=== PATIENT | male | born 1995 | race Caucasian/White ===

== ENCOUNTER 2018-05-29 13:49 | Emergency (ER) | payer BC ==
[2018-05-29] MEDS ORDERED: Sodium Chloride 0.9% 10 ML Syringe FLUSH PRN ×2 (14:14→14:50)
[2018-05-29] MEDS ORDERED: LORazepam 2 MG/ML SDV IVPUSH ONE (14:18)
[2018-05-29] MEDS ORDERED: GI Cocktail Oral Solution 30 ML PO ONE (14:48)
[2018-05-29] MEDS ORDERED: Acetaminophen 325 MG Tab PO ONE (14:48)
[2018-05-29] MEDS ORDERED: Sodium Chloride 0.9% 1,000 ML IV ONE ×2 (14:51→15:34)
--- NOTE | 2018-05-29 14:53 | EDM.PDOC ---
ED HPI GENERAL MEDICAL PROBLEM - General Chief Complaint: Chest Pain Stated Complaint: Chest Pain Time Seen by Provider: 05/29/18 14:43 Source of Information: Reports: Patient History Limitations: Reports: No Limitations - History of Present Illness INITIAL COMMENTS - FREE TEXT/NARRATIVE: Patient comes to ER with complaint of generalized headache, epigastric pain, nausea, and loose stools. Ill since yesterday. Has not taken any medication for his symptoms. Works at [employer]. Smoker. Headache is better when he lays down. No acute other HEENT changes. Denies obvious cold symptoms. No ear pain/vision change or drainage. Respiratory is negative for new cough/wheeze/SOB Chest pain is epigastric and substernal. No radiation. Nothing specifically makes it better or worse. Patient admits to participating in a hot pepper eating "challenge" with friends last Monday. He at leftover food with the hot peppers last night. Has had nausea but no vomiting yesterday and today. Approximately 6-8 loose bowel movements over the last two days. Non-bloody. No other abdominal pain noted. Denies back pain. Denies UTI changes/urinary complaints. No other neuro complaints. No weakness/limb changes. Denies fevers but filled a bit chilled earlier today. Denies any significant past medical history. During ROS patient mentioned that he sometimes feels a bit anxious, and sometimes feels a bit depressed. Has not seen anyone for this. Denies any feelings of self harm or harm towards others. Parietal Headache Pain Score (Numeric/FACES): 10 - Related Data Allergies Allergy/AdvReac Type Severity Reaction Status Date / Time No Known Allergies Allergy Verified 06/01/18 14:51 Home Meds: Home Meds Acetaminophen/Caffeine [Excedrin Tension Headache Cplt] 1 tab PO DAILY PRN 06/01 [History] Ascorbate Calcium [Vitamin C] 500 mg PO DAILY 06/01/18 [History] Magnesium Oxide 400 mg PO DAILY 06/01/18 [History] Past Medical History - Past Health History Medical/Surgical History: Denies Medical/Surgical History Social & Family History - Family History Cardiac: Reports: Heart Failure Psychiatric: Reports: ADD, ADHD, Depression, Mood Swings, Schizophrenia Endocrine/Metabolic: Reports: Diabetes, type II Oncologic: Reports: Breast, Lung - Tobacco Use Smoking Status *Q: Current Every Day Smoker Years of Tobacco use: 7 Packs/Tins Daily: 0.5 - Caffeine Use Caffeine Use: Reports: Energy Drinks, Soda - Alcohol Use Days Per Week of Alcohol Use: 2 Number of Drinks Per Day: 12 Total Drinks Per Week: 24 - Recreational Drug Use Recreational Drug Use: Yes Recreational Drug Type: Reports: Marijuana/Hashish Recreational Drug Use Frequency: Daily ED ROS GENERAL - Review of Systems Review Of Systems: ROS reveals no pertinent complaints other than HPI. ED EXAM, GENERAL - Physical Exam Exam: See Below Exam Limited By: No Limitations General Appearance: Alert, WD/WN, Anxious Eye Exam: Bilateral Eye: EOMI, PERRL Ears: Normal External Exam, Normal Canal, Hearing Grossly Normal, Normal TMs Nose: Normal Inspection, Normal Mucosa, No Blood. No: Nasal Deformity, Nasal Swelling, Nasal Drainage Throat/Mouth: Normal Inspection, Normal Lips, Normal Oropharynx, Normal Voice, No Airway Compromise Head: Atraumatic, Normocephalic Neck: Normal Inspection, Supple, Non-Tender, Full Range of Motion. No: Lymphadenopathy (L), Lymphadenopathy (R) Respiratory/Chest: No Respiratory Distress, Lungs Clear, Normal Breath Sounds, No Accessory Muscle Use, Chest Non-Tender Cardiovascular: Normal Peripheral Pulses, Regular Rate, Rhythm, No Murmur Peripheral Pulses: 2+: Radial (L), Radial (R) GI/Abdominal: Normal Bowel Sounds, Soft, No Distention, No Abnormal Bruit, Tender (mild tenderness in epigastrum only). No: Guarding, Rigid, Rebound (Male) Exam: Deferred Rectal (Males) Exam: Deferred Back Exam: Normal Inspection Extremities: Normal Inspection, Normal Range of Motion, Non-Tender, No Pedal Edema, Normal Capillary Refill Neurological: Alert, Oriented, CN II-XII Intact, Normal Cognition, Normal Gait, No Motor/Sensory Deficits Psychiatric: Anxious Skin Exam: Warm, Dry, Intact, Normal Color, No Rash EKG INTERPRETATION EKG Date: 05/29/18 Time: 13:54 Rhythm: Other (Tachycardia) Rate (Beats/Min): 106 Gaffney: Normal P-Wave: Present QRS: Normal ST-T: Other (QRS morphology suggestive of possible LVH based on voltage) QT: Normal Comparison: NA - No Prior EKG Course - Vital Signs Last Recorded V/S: Last Vital Signs Temp 37.1 C 05/29/18 14:06 Pulse 78 05/29/18 17:51 Resp 13 05/29/18 17:51 BP 132/85 05/29/18 17:51 Pulse Ox 100 05/29/18 17:51 Orthostatic Blood Pressure [ 150/90 Supine] - Orders/Labs/Meds Labs: Laboratory Tests 05/29/18 05/29/18 05/29/18 Range/Units 14:00 14:00 14:00 WBC 9.9 (4.0-10.2) K/uL RBC 4.81 (4.33-5.41) M/uL Hgb 16.4 (13.1-16.8) g/dL Hct 45.0 (39.0-49.0) % MCV 93.6 (84.0-98.0) fL MCH 34.1 H (28.2-33.3) pg MCHC 36.4 H (31.7-36.0) g/dL RDW 13.2 (11.2-14.1) % Plt Count 219 (150-350) K/uL Neut % (Auto) 65.7 (45.0-80.0) % Lymph % (Auto) 20.9 (10.0-50.0) % Harlan % (Auto) 10.3 (2.0-14.0) % Eos % (Auto) 2.9 (0.0-5.0) % Baso % (Auto) 0.2 (0.0-2.0) % Neut # (Auto) 6.48 (1.40-7.00) K/uL Lymph # (Auto) 2.06 (0.50-3.50) K/uL Harlan # (Auto) 1.02 H (0.00-1.00) K/uL Eos # (Auto) 0.29 (0.00-0.50) K/uL Baso # (Auto) 0.02 (0.00-0.20) K/uL D-Dimer, Quantitative < 100 (0-400) ng/mL Sodium 137 (136-145) mmol/L Potassium 3.8 (3.5-5.1) mmol/L Chloride 100 (98-107) mmol/L Carbon Dioxide 24.7 (21.0-32.0) mmol/L BUN 11 (7-18) mg/dL Creatinine 0.85 (0.51-1.17) mg/dL Est Cr Clr Drug Dosing 145.19 mL/min Estimated GFR (MDRD) > 60 mL/min Glucose 102 (74-106) mg/dL Lactic Acid (0.4-2.0) mmol/L Calcium 9.2 (8.5-10.1) mg/dL Magnesium 1.5 L (1.8-2.4) mg/dL Total Bilirubin 0.5 (0.2-1.0) mg/dL AST 26 (15-37) U/L ALT 31 (12-78) U/L Alkaline Phosphatase 88 (46-116) IU/L Troponin I 0.000 (0.000-0.056) ng/mL Total Protein 8.4 H (6.4-8.2) g/dL Albumin 4.3 (3.4-5.0) g/dL Specimen Type Urine Color Urine Appearance Urine pH (5.0-9.0) Ur Specific [place] (1.005-1.030) Urine Protein (NEGATIVE) mg/dL Urine Glucose (UA) (NEGATIVE) mg/dL Urine Ketones (NEGATIVE) mg/dL Urine Occult Blood (NEGATIVE) Urine Nitrite (NEGATIVE) Urine Bilirubin (NEGATIVE) Urine Urobilinogen (0.2-1.0) E.U./dL Ur Leukocyte Esterase (NEGATIVE) Urine RBC /HPF Urine WBC /HPF Ur Epithelial Cells /LPF Urine Bacteria (NONE TO FEW) /HPF 05/29/18 05/29/18 Range/Units 14:00 17:30 WBC (4.0-10.2) K/uL RBC (4.33-5.41) M/uL Hgb (13.1-16.8) g/dL Hct (39.0-49.0) % MCV (84.0-98.0) fL MCH (28.2-33.3) pg MCHC (31.7-36.0) g/dL RDW (11.2-14.1) % Plt Count (150-350) K/uL Neut % (Auto) (45.0-80.0) % Lymph % (Auto) (10.0-50.0) % Harlan % (Auto) (2.0-14.0) % Eos % (Auto) (0.0-5.0) % Baso % (Auto) (0.0-2.0) % Neut # (Auto) (1.40-7.00) K/uL Lymph # (Auto) (0.50-3.50) K/uL Harlan # (Auto) (0.00-1.00) K/uL Eos # (Auto) (0.00-0.50) K/uL Baso # (Auto) (0.00-0.20) K/uL D-Dimer, Quantitative (0-400) ng/mL Sodium (136-145) mmol/L Potassium (3.5-5.1) mmol/L Chloride (98-107) mmol/L Carbon Dioxide (21.0-32.0) mmol/L BUN (7-18) mg/dL Creatinine (0.51-1.17) mg/dL Est Cr Clr Drug Dosing mL/min Estimated GFR (MDRD) mL/min Glucose (74-106) mg/dL Lactic Acid 2.3 H (0.4-2.0) mmol/L Calcium (8.5-10.1) mg/dL Magnesium (1.8-2.4) mg/dL Total Bilirubin (0.2-1.0) mg/dL AST (15-37) U/L ALT (12-78) U/L Alkaline Phosphatase (46-116) IU/L Troponin I (0.000-0.056) ng/mL Total Protein (6.4-8.2) g/dL Albumin (3.4-5.0) g/dL Specimen Type Urinblad Urine Color Yellow Urine Appearance Clear Urine pH 7.0 (5.0-9.0) Ur Specific [place] 1.015 (1.005-1.030) Urine Protein Negative (NEGATIVE) mg/dL Urine Glucose (UA) Negative (NEGATIVE) mg/dL Urine Ketones Negative (NEGATIVE) mg/dL Urine Occult Blood Negative (NEGATIVE) Urine Nitrite Negative (NEGATIVE) Urine Bilirubin Negative (NEGATIVE) Urine Urobilinogen 0.2 (0.2-1.0) E.U./dL Ur Leukocyte Esterase Negative (NEGATIVE) Urine RBC Not seen /HPF Urine WBC Not seen /HPF Ur Epithelial Cells Not seen /LPF Urine Bacteria Not seen (NONE TO FEW) /HPF Meds: Medications Discontinued Medications Generic Name Dose Route Start Last Admin Trade Name Freq PRN Reason Stop Dose Admin Acetaminophen 650 mg 05/29/18 14:48 05/29/18 14:59 Tylenol PO 05/29/18 14:49 650 mg NOW ONE Administration Al Hydroxide/Mg Hydroxide 30 ml 05/29/18 14:48 05/29/18 15:01 Gi Cocktail PO 05/29/18 14:49 30 ml ONETIME ONE Administration Famotidine 20 mg 05/29/18 15:33 05/29/18 15:38 Pepcid IVPUSH 05/29/18 15:34 20 mg ONETIME ONE Administration Sodium Chloride 1,000 mls @ 999 mls/hr 05/29/18 14:51 05/29/18 15:01 Normal Saline IV 05/29/18 15:51 999 mls/hr .BOLUS ONE Administration Sodium Chloride 1,000 mls @ 999 mls/hr 05/29/18 15:34 05/29/18 17:18 Normal Saline IV 05/29/18 16:34 999 mls/hr .BOLUS ONE Administration Loperamide HCl 4 mg 05/29/18 15:33 05/29/18 16:04 Imodium Ad PO 05/29/18 15:34 4 mg ONETIME ONE Administration Lorazepam 1 mg 05/29/18 14:18 05/29/18 14:22 Ativan IVPUSH 05/29/18 14:19 1 mg ONETIME ONE Administration Magnesium Oxide 400 mg 05/29/18 15:35 05/29/18 16:04 Magnesium Oxide PO 05/29/18 15:36 400 mg ONETIME ONE Administration Magnesium Sulfate/Dextrose 1 gm 05/29/18 15:32 05/29/18 15:39 Magnesium 1 Gm In D5w 100 Ml IV 05/29/18 15:33 1 gm ONETIME ONE Administration Ondansetron HCl 4 mg 05/29/18 15:34 05/29/18 15:42 Zofran IVPUSH 05/29/18 15:35 4 mg ONETIME ONE Administration Pantoprazole Sodium 40 mg 05/29/18 15:32 05/29/18 15:38 Protonix Iv IVPUSH 05/29/18 15:33 40 mg ONETIME ONE Administration Sodium Chloride 10 ml 05/29/18 14:14 05/29/18 14:24 Saline Flush FLUSH 10 ml ASDIRECTED PRN Administration Keep Vein Open Sodium Chloride 10 ml 05/29/18 14:50 Saline Flush FLUSH ASDIRECTED PRN Keep Vein Open - Radiology Interpretation Free Text/Narrative:: Chest xray unremarkable for acute changes. - Re-Assessments/Exams Free Text/Narrative Re-Assessment/Exam: Cardiac labs/EKG/chest xray requested given complaint of chest pain. Patient anxious, received Ativan. Suspicion of gastroenteritis/viral illness given history and complaints. Influenza ordered. Patient received IV fluids. GI cocktail led to complete relief of epigastric/substernal pain. Pepcid and Protonix IV subsequently ordered. Mag quite low at 1.5 Patient asked if he had issues with muscle cramping. He responded that he notes that his leg muscles are somewhat shaky at times and he feels like they might cramp. No history of low Mg. IV Magnesium replacement ordered as well as PO. Further anticipated dilution of Magnesium with planned 2L of NS fluid bolus suggested IV Mag appropriate choice. Normal WBC Lactic acid mildly elevated at 2.4 Departure - Departure Time of Disposition: 17:00 Disposition: Home, Self-Care 01 Condition: Good Clinical Impression: Gastroenteritis, Hypomagnesemia - Discharge Information *PRESCRIPTION DRUG MONITORING PROGRAM REVIEWED*: Not Applicable *COPY OF PRESCRIPTION DRUG MONITORING REPORT IN PATIENT JEFF: Not Applicable Instructions: Ondansetron injection, Viral Gastroenteritis, Adult, [id number] , Hypomagnesemia, Pantoprazole injection, Magnesium Sulfate injection, Famotidine injection, Lorazepam injection Referrals: Martina Ramirez PA-C [Primary Care Provider] - Forms: ED Department Discharge Additional Instructions: Rhea diet. Stay away from chili peppers/hot food. If intermittent continued epigastric pain and heart burn is noted, recommend follow up with clinic for HPylorie testing. Follow up with local clinic for STD testing as discussed given your concerns. Work on a suction plate carrier cleaner diet! This may help in many ways, including improved mood. If you have any concerns that you may be developing a more depressed mood, please make a follow up appointment with the clinic for appropriate evaluation and planning. Stay hydrated. Water is best. Avoidance of energy drinks is encouraged. If you do not note significant improvement in symptoms over the next 24-36 hours , follow up for re-check. Follow up sooner for worsening problems. Start taking Vitamin D 4000 to 5000 units daily Start taking Magnesium Gluconate 400-500mg daily
[2018-05-29 14:55] LABS: CHLORIDE,CL 100 mmol/L (98-107); SODIUM,NA 137 mmol/L (136-145)
[2018-05-29] MEDS ORDERED: Pantoprazole 40 MG Vial IVPUSH ONE (15:32)
[2018-05-29] MEDS ORDERED: Loperamide 2 MG Tab PO ONE (15:33)
[2018-05-29] MEDS ORDERED: Famotidine 20 MG/2 ML SDV IVPUSH ONE (15:33)
[2018-05-29] MEDS ORDERED: Ondansetron 4 MG/2 ML SDV IVPUSH ONE (15:34)
[2018-05-29] MEDS ORDERED: Magnesium Oxide 400 MG Tab PO ONE (15:35)
== END 2018-05-29 18:25 | disposition home or self-care (01) ==
LOC: LL.ED 13:49
DX: K52.9 Noninfective gastroenteritis and colitis, unspecified (principal); E83.42 Hypomagnesemia; F17.210 Nicotine dependence, cigarettes, uncomplicated; Z79.899 Other long term (current) drug therapy
CPT/HCPCS: 36415; 71046; 80053; 81001; 83605; 83735; 84484; 85025; 85379; 87804; 93005; 96361; 96365; 96375; 99284; A9270-GY; C9113; J2060; J2405; J3475; J3490; J7030

== ENCOUNTER 2018-06-01 14:50 | Emergency (ER) | payer BC | END 2018-06-01 15:15 | disposition left against medical advice (07) | LOC: LL.ED 14:50 | DX: Z53.21 Procedure and treatment not carried out due to patient leaving prior to being seen by health care provider (principal) ==

== ENCOUNTER 2019-12-11 08:36 | Emergency (ER) | payer BC, OTHER ==
--- NOTE | 2019-12-11 09:15 | EDM.PDOC ---
ED HPI GENERAL MEDICAL PROBLEM - General Chief Complaint: Upper Extremity Injury/Pain Stated Complaint: right wrist pian Time Seen by Provider: 12/11/19 08:45 Source of Information: Reports: Patient History Limitations: Reports: No Limitations - History of Present Illness INITIAL COMMENTS - FREE TEXT/NARRATIVE: Pt was using a hammer yesterday and felt something pull in his wrist Used ice and Ibuprofen but with increased pain and limited ROM today Onset: Sudden Duration: Day(s):, Getting Worse Location: Reports: Upper Extremity, Right Severity: Moderate Improves with: Reports: Immobilization Worsens with: Reports: Movement Context: Reports: Trauma - Related Data Allergies Allergy/AdvReac Type Severity Reaction Status Date / Time No Known Allergies Allergy Verified 12/11/19 08:48 Home Meds: Home Meds Fluticasone Propionate [Flonase] 1 spray INH ASDIRECTED PRN 12/11/19 [History] Ibuprofen 800 mg PO Q6HR PRN 12/11/19 [History] Past Medical History - Past Health History Medical/Surgical History: Denies Medical/Surgical History - Past Surgical History HEENT Surgical History: Reports: Tonsillectomy Social & Family History - Family History Cardiac: Reports: Heart Failure Psychiatric: Reports: ADD, ADHD, Depression, Mood Swings, Schizophrenia Endocrine/Metabolic: Reports: Diabetes, type II Oncologic: Reports: Breast, Lung - Tobacco Use Smoking Status *Q: Current Every Day Smoker Years of Tobacco use: 5 Packs/Tins Daily: 0.5 - Caffeine Use Caffeine Use: Reports: Energy Drinks - Recreational Drug Use Recreational Drug Use: No Review of Systems - Review of Systems Review Of Systems: See Below Musculoskeletal: Reports: Joint Pain, Joint Swelling ED EXAM, GENERAL - Physical Exam Exam: See Below Exam Limited By: No Limitations General Appearance: Alert, WD/WN, Mild Distress Extremities: Other (Right wrist tender over extensor surface Mild swelling No ecchymosis) Course - Vital Signs Last Recorded V/S: Last Vital Signs Temp 98.8 F 12/11/19 08:42 Pulse 87 12/11/19 08:42 Resp 18 12/11/19 08:42 BP 149/87 H 12/11/19 08:42 Pulse Ox 100 12/11/19 08:42 - Orders/Labs/Meds Orders: Active Orders 24 hr Category Date Time Status Wrist Comp Min 3V Rt [CR] Stat Exams 12/11/19 08:37 Taken - Re-Assessments/Exams Free Text/Narrative Re-Assessment/Exam: 12/11/19 09:13 Xray: No fracture 12/11/19 09:14 Splint placed per nursing Departure - Departure Time of Disposition: 09:30 Disposition: Home, Self-Care 01 Clinical Impression: Wrist pain, right - Discharge Information *PRESCRIPTION DRUG MONITORING PROGRAM REVIEWED*: Not Applicable *COPY OF PRESCRIPTION DRUG MONITORING REPORT IN PATIENT JEFF: Not Applicable Instructions: Cast or Splint Care, Adult, [id number], How to Use Cold Therapy, Wrist Pain, Adult, [id number] Referrals: Martina Ramirez PA-C [Primary Care Provider] - Additional Instructions: Ice as needed Wear splint Follow up in clinic if not improved Sepsis Event Note (ED) - Evaluation Sepsis Screening Result: No Definite Risk - Focused Exam Vital Signs: Vital Signs Temp Pulse Resp BP Pulse Ox 12/11/19 08:42 98.8 F 87 18 149/87 H 100 - My Orders Last 24 Hours: My Active Orders 12/11/19 08:37 Wrist Comp Min 3V Rt [CR] Stat - Assessment/Plan Last 24 Hours: My Active Orders 12/11/19 08:37 Wrist Comp Min 3V Rt [CR] Stat
== END 2019-12-11 09:44 | disposition home or self-care (01) ==
LOC: LL.ED 08:36
DX: M25.531 Pain in right wrist (principal); F17.210 Nicotine dependence, cigarettes, uncomplicated; X50.9XXA Other and unspecified overexertion or strenuous movements or postures, initial encounter
CPT/HCPCS: 73110-RT; 99282; 99283

== ENCOUNTER 2021-02-01 16:03 | Emergency (ER) | payer OTHER, BC ==
[2021-02-01] MEDS: Lidocaine 2% with EPINEPHrine 1:100,000 20 ML MDV INJECT ONE (16:11)
[2021-02-01 16:32] VITALS: PULSE 108
[2021-02-01] MEDS ORDERED: Bacitracin Oint 1 GM U/D Packet ONE (16:48)
[2021-02-01] MEDS: Bacitracin Oint 1 GM U/D Packet TOP ONE (16:49)
[2021-02-01 16:54] VITALS: BP 132/76
--- NOTE | 2021-02-01 17:23 | EDM.PDOC ---
ED HPI GENERAL MEDICAL PROBLEM - General Chief Complaint: Laceration Stated Complaint: injury to left arm from ratchet strap Time Seen by Provider: 02/01/21 16:03 Source of Information: Reports: Patient History Limitations: Reports: No Limitations - History of Present Illness INITIAL COMMENTS - FREE TEXT/NARRATIVE: Patient comes emergency department today from work at [employer] with an injury to his left forearm. Just prior to arrival the patient was at work when he was using a ratchet strap on a tire to get it to seat in the tire rim. The ratchet strap shot off the rim and struck him in the left forearm sustaining a rather large laceration the left forearm. This happened just prior to arrival. Patient denies any paresthesias to his left hand. No change in the functio nality of his left hand. He is unsure when his last tetanus shot was. left forearm Pain Score (Numeric/FACES): 6 - Related Data Allergies Allergy/AdvReac Type Severity Reaction Status Date / Time No Known Allergies Allergy Verified 12/11/19 08:48 Home Meds: Home Meds Fluticasone Propionate [Flonase] 1 spray INH ASDIRECTED PRN 12/11/19 [History] Ibuprofen 800 mg PO Q6HR PRN 12/11/19 [History] cephALEXin [Cephalexin] 500 mg PO QID #16 tablet 02/01/21 [Rx] Past Medical History - Past Health History Medical/Surgical History: Denies Medical/Surgical History - Past Surgical History HEENT Surgical History: Reports: Tonsillectomy Social & Family History - Family History Cardiac: Reports: Heart Failure Psychiatric: Reports: ADD, ADHD, Depression, Mood Swings, Schizophrenia Endocrine/Metabolic: Reports: Diabetes, type II Oncologic: Reports: Breast, Lung - Tobacco Use Tobacco Use Status *Q: Heavy Tobacco User Years of Tobacco use: 10 Packs/Tins Daily: 1 Used Tobacco, but Quit: No Second Hand Smoke Exposure: Yes - Caffeine Use Caffeine Use: Reports: Energy Drinks - Recreational Drug Use Recreational Drug Use: No ED ROS GENERAL - Review of Systems Review Of Systems: Comprehensive ROS is negative, except as noted in HPI. ED EXAM, SKIN/RASH Exam: See Below Text/Narrative:: On the volar surface of the left distal forearm approximately 4 inches proximal from the wrist there is a large open laceration that is approximately 5 cm in length and 2-1/2 cm wide. This extends past the subcutaneous tissue and minimally interrupts the muscle fascia. Does not involve any tendon. Is able to flex and extend and rotate the wrist and fingers of his hand appropriately. There is a small amount of bleeding. There is no bleeding from the muscle fascia injury. There is some bruising to the muscle as well. There is no foreign material. There is a small arterial bleeder that is initially con trolled with direct pressure. This is a superficial small arterial bleeder. Rest of the left upper forearm is unremarkable. Exam Limited By: No Limitations General Appearance: Alert, WD/WN Respiratory/Chest: No Respiratory Distress Cardiovascular: Normal Peripheral Pulses, Regular Rate, Rhythm Peripheral Pulses: 2+: Radial (L), Radial (R) Extremities: Normal Capillary Refill. No: Normal Inspection (Please see text narrative above for the injury to the left volar surface of the forearm.) Neurological: Alert, Oriented, No Motor/Sensory Deficits Psychiatric: Normal Affect, Normal Mood Skin: Warm, Dry, Intact, Normal Color, No Rash ED SKIN PROCEDURES - Laceration/Wound Repair Left Distal Ventral Arm Appearance: Subcutaneous, Muscle, Irregular, Clean Distal NVT: Neuro & Vascular Intact, No Tendon Injury Anesthetic Type: Local Local Anesthesia - Lidocaine (Xylocaine): 2% with EPI Local Anesthetic Volume: Other (15) Skin Prep: Chlorhexidine (Hibiciens), Saline Saline Irrigation (cc's): 1,000 Exploration/Debridement/Repair: Wound Explored, In a Bloodless Field, Explored to Base, No Foreign Material Found, Multiple Flaps Aligned Closed with: Sutures Lac/Wound length In cm: 5 Suture Size: 4-0 Suture Type: Running Suture Size: 4-0 # of Sutures: 6 Repaired with: Vicryl Suture Size: 4-0 # of Sutures: 4 Repaired with: Vicryl Drain Placement: No Sterile Dressing Applied: Nurse Tetanus Status Addressed: Yes Course - Vital Signs Last Recorded V/S: Last Vital Signs Temp 98.9 F 02/01/21 16:23 Pulse 108 H 02/01/21 16:23 Resp 18 02/01/21 16:54 BP 132/76 02/01/21 16:54 Pulse Ox 98 02/01/21 16:23 - Orders/Labs/Meds Meds: Medications Discontinued Medications Generic Name Dose Route Start Last Admin Trade Name Freq PRN Reason Stop Dose Admin Bacitracin 1 dose 02/01/21 16:45 02/01/21 16:49 Bacitracin Oint 1 Gm U/D Packet TOP 02/01/21 16:46 1 dose ONETIME ONE Administration Bacitracin Confirm 02/01/21 16:48 Bacitracin Oint 1 Gm U/D Packet Administered 02/01/21 16:49 Dose 2 dose .ROUTE .STK-MED ONE Diphtheria/Tetanus/Acell Pertussis 0.5 ml 02/01/21 17:21 02/01/21 17:34 Diphtheria,Pertussis(Acell),Tetanus Vaccine 0.5 Ml Syringe IM 02/01/21 17:22 0.5 ml .ONCE ONE Administration Lidocaine/Epinephrine 20 ml 02/01/21 16:06 02/01/21 16:11 Lidocaine 2% With Epinephrine 1:100,000 20 Ml Mdv INJECT 02/01/21 16:07 20 ml ONETIME ONE Administration - Re-Assessments/Exams Free Text/Narrative Re-Assessment/Exam: The area of the laceration was anesthetized with 2% lidocaine with epinephrine with excellent anesthesia. I irrigated the laceration with 1 L of sterile saline with chlorhexidine solution as well. I explored the wound fully. There was no further injury. There is no tendon involvement. This is a very superficial injury to the muscle fascia but the muscle is intact. The wound edges approximated very well. There was single interrupted sutures placed in the muscle fascia to repair the superficial damage. There is no active bleeding. There was a small very small arterial bleeder that was tied off from a superficial subcutaneous artery with 4-0 Vicryl. The subcutaneous tissue was approximated and then a single running suture for the length of the wound on the superficial aspect with good skin approximation. The patient tolerated the procedure well. We will place him on Keflex due to the nature of the injury as well as the depth to prevent infection. Discharge directions as below are explained to the patient is comfortable with this plan his questions are answered. Departure - Departure Time of Disposition: 17:15 Disposition: Home, Self-Care 01 Clinical Impression: Laceration - Discharge Information Prescriptions: cephALEXin [Cephalexin] 500 mg PO QID #16 tablet Instructions: Laceration Care, Adult, [id number], Pain Medicine Instructions, [id number], Sutures, Ebony, or Adhesive Wound Closure, [id number] Referrals: PCP,Unknown [Primary Care Provider] - Forms: ED Department Discharge Additional Instructions: Cleanse wound twice daily with soap and water. Bacitracin and bandage until healed. Running water over the top is fine. No soaking in water. Watch for signs of infection. Cephalexin 1 capsule 4 times a day for the next. 7 days. Bottle sent home from the ED and RX sent to [facility]. Light duty with the left arm for the next 2 weeks. Sutures out in 10 days. Return to the ED if new or worsening symptoms. Follow up with PCP if any concerns. Sepsis Event Note (ED) - Evaluation Sepsis Screening Result: No Definite Risk - Focused Exam Vital Signs: Vital Signs Temp Pulse Resp BP Pulse Ox 02/01/21 16:54 18 132/76 02/01/21 16:23 98.9 F 108 H 22 H 138/88 98
[2021-02-01] MEDS: Diphtheria,Pertussis(Acell),Tetanus Vaccine 0.5 ML Syringe IM ONE (17:34)
== END 2021-02-01 17:45 | disposition home or self-care (01) ==
LOC: LL.ED 16:03
DX: S51.812A Laceration without foreign body of left forearm, initial encounter (principal); Z72.0 Tobacco use; Z23 Encounter for immunization; W26.8XXA Contact with other sharp object(s), not elsewhere classified, initial encounter; Y99.0 Civilian activity done for income or pay
CPT/HCPCS: 12002; 13121; 90471; 90715; 99282-25; 99283